=== PATIENT | female | born 1955 | race Caucasian/White ===

== ENCOUNTER 2024-10-31 07:51 | Emergency (ER) | payer OTHER, SELFPAY ==
[2024-10-31 07:52] VITALS: BP 146/73; PULSE 57; RESP 14; TEMP 36.1; O2SAT 98; BMI 28.9
--- NOTE | 2024-10-31 08:09 | ED.VIS.BACK ---
HPI History of Present Illness Chief Complaint: Back Informant: patient Onset/Context/Timing Onset: Days (3) Context: Gradual Onset Timing: Continuous Quality: - (Cramping) Location: Lumbar Worsened by: improves with Nothing Relieved by: Nothing Associated Symptoms Associated Symptoms: Fever and Abdominal Pain; Negative for Numbness, Tingling, Radiation to Right Leg, Radiation to Left Leg, Dysuria, Unable to Ambulate, Unable to Transfer, Urinary Retention, Urinary Incontinence or Fecal Incontinence Narrative Narrative: Patient presents with low back pain and left lower abdominal pain that has been getting worse over the past 3 days. Patient states it is constant. Patient describes it as cramping. Patient states it starts in her back and radiates around to her left lower abdomen. Patient states nothing makes it better and nothing makes it worse. Patient admits to a low-grade fever of 101 at home. Patient denies any dysuria, frequency, or hematuria. Patient denies any nausea or vomiting. [facility] Medical History (Updated 10/31/24 @ 10:[address] Bishnu Lopez, DO) HLD (hyperlipidemia) HTN (hypertension) CAD (coronary artery disease) Home Medications ?Medication ?Instructions ?Recorded ?Last Taken ?Type aspirin 81 mg chewable tablet 81 mg PO DAILY@0800 07/12/14 11/18/15 History atorvastatin 80 mg tablet 80 mg PO QHS 07/12/14 11/17/15 History clopidogrel 75 mg tablet 75 mg PO DAILY 07/12/14 11/18/15 History fenofibrate 160 mg tablet (Lofibra) 160 mg PO DAILY 09/08/15 11/18/15 History isosorbide mononitrate 120 mg 120 mg PO DAILY 09/08/15 11/18/15 History tablet,extended release 24 hr metoprolol succinate 25 mg 25 mg PO DAILY 09/08/15 11/18/15 History tablet,extended release 24 hr nitroglycerin 0.4 mg sublingual 0.4 mg sublingual Q5M PRN Chest 09/08/15 Unknown History tablet Pain omega-3 fatty acids-fish oil 300 1 ea PO DAILY 09/08/15 11/18/15 History mg-1,000 mg capsule ranolazine 1,000 mg 1,000 mg PO BID 09/08/15 11/18/15 History tablet,extended release,12 hr (Ranexa) ondansetron 4 mg disintegrating 4 mg PO Q6H PRN PRN Nausea #10 tabs 08/09/16 Unknown Rx tablet oxycodone-acetaminophen 5 mg-325 1 - 2 tab PO Q6H PRN PRN Pain #12 08/09/16 Unknown Rx mg tablet tabs amoxicillin 875 mg-potassium 875 mg PO Q12H #20 TABLETS 10/31/24 Unknown Rx clavulanate 125 mg tablet Allergy/AdvReac Type Severity Reaction Status Date / Time amlodipine besylate (From Allergy Unknown Verified 10/31/24 07:52 [facility]) Surgical History (Updated 10/31/24 @ 08:[address] Bishnu Lopez DO) Hx of heart artery stent S/P PTCA (percutaneous transluminal coronary angioplasty) Social History Smoking Status: Former smoker ROS ROS ED Constitutional Constitutional ED: Reports fever(s); Denies chills Eyes Eyes: Denies blurry vision or change in vision ENT ENT ED: Denies rhinorrhea or sore throat Cardiovascular Cardiovascular: Denies chest pain or palpitations Respiratory/Chest Respiratory/Chest: Denies cough or dyspnea Gastrointestinal Gastrointestinal: Reports abdominal pain; Denies nausea or vomiting Genitourinary Genitourinary ED: Denies dysuria or hematuria Musculoskeletal Musculoskeletal: Reports back pain; Denies neck pain Integumentary Denies abscess or rash Neurologic Neurologic: Denies headache(s) or weakness Allergic/Immunologic Allergic/Immunologic ED: Denies mouth swelling or urticaria EXAM Physical Exam Const Vital Signs: 10/31/24 07:52 Temperature 96.9 F L Temperature Source Temporal Pulse Rate 57 L Respiratory Rate 14 Blood Pressure 146/73 H Blood Pressure Mean 97 Pulse Ox 98 Oxygen Delivery Method Room Air Positive well nourished and well developed General Appearance ED: well developed and NAD HEENT Reports moist mucous membranes Neck supple and no JVD Resp normal respiratory effort and clear to auscultation bilaterally Cardio regular rate and regular rhythm GI soft to palpation and non-distended Palpation: tender LLQ Back/Spine Back/Spine Narrative: There is tenderness to palpation of the left lumbar paraspinal muscles. There is decreased range of motion. There is left CVA tenderness. Strength is 5/5 bilaterally in the lower extremities. There are no sensory deficits noted. Straight leg raises were negative bilaterally. General Back: CVA tenderness left Lumbar Spine / Lower Back: ROM limited and straight leg raise negative bilaterally Extremity normal to inspection Neuro oriented x3 and no sensory deficits noted Sensorium / Orientation: alert Motor Exam: strength 5/5 throughout Psych mental status grossly normal MDM MDM MDM Narrative Medical decision making narrative: Differential diagnosis includes lumbosacral strain, lumbar radiculopathy, ureteral calculus, diverticulitis, urinary tract infection, and pyelonephritis. CBC will be obtained to assess for leukocytosis and anemia. Basic metabolic profile will be obtained to assess for electrolyte abnormality and renal function. Urinalysis will be obtained to assess for urinary tract infection and hematuria. CT scan of the abdomen and pelvis will be obtained to assess for ureteral calculus, diverticulitis, and pyelonephritis. History & Record Review Additional record(s) reviewed:: Prior labs Lab Data Attestation: I reviewed the patient's lab results. Lab results narrative: CBC was reviewed and was essentially within normal limits. Basic metabolic profile was reviewed and was essentially within normal limits. Urinalysis was reviewed. There is no evidence of urinary tract infection or hematuria. Labs: Laboratory Results - last 24 hr 10/31/24 10/31/24 08:45 09:41 WBC 6.0 RBC 5.04 Hgb 15.3 H Hct 46.4 MCV 92.1 MCH 30.4 MCHC 33.0 RDW Std Deviation 46.9 H RDW Coeff of Vasu 13.9 Plt Count 248 MPV 10.1 Immature Gran % (Auto) 0.300 Neut % (Auto) 63.9 Lymph % (Auto) 21.4 [place] % (Auto) 12.9 H Eos % (Auto) 1.2 Baso % (Auto) 0.3 Absolute Neuts (auto) 3.8 Absolute Lymphs (auto) 1.28 Nucleated RBC % 0 Sodium 139 Potassium 4.2 Chloride 106 Carbon Dioxide 22.2 Anion Gap 11 BUN 16 Creatinine 0.89 Estim Creat Clear Calc 59.73 Est GFR (MDRD) Non-Af 70 BUN/Creatinine Ratio 18.0 Glucose 112 H Calcium 9.9 Urine Color Yellow Urine Clarity Clear Urine pH 5.0 Ur Specific [place] 1.015 Urine Protein 30 H Urine Glucose (UA) 250 H Urine Ketones Negative Urine Occult Blood 25 H Urine Nitrite Negative Urine Bilirubin Negative Urine Urobilinogen 1 H Ur Leukocyte Esterase 100 H Urine RBC 0-5 SEEN Urine WBC 0-5 SEEN Ur Squamous Epith Cells 0-5 SEEN Urine Bacteria 0 SEEN Hyaline Casts 0-5 SEEN Urine Mucus RARE Radiography Diagnostic Testing: Clinical Impression(s) from Imaging Studies Abdomen/Pelvis CT 10/31/24 08:23 IMPRESSION: Acute mid and distal sigmoid diverticulitis with extensive Vicki sigmoidal inflammatory stranding. No clearly demonstrated micro perforation. An underlying lesion can not be excluded and further evaluation with colonoscopy is recommended once acute inflammation has resolved Scattered colonic diverticulosis throughout the remainder of the colon particularly the distal sigmoid colon but no other evidence of diverticulitis Small-bowel ileus likely due to the acute diverticulitis mentioned above No suspicious solid organ abnormality, simple renal cysts, no specific follow-up needed Uterus is present, the endometrium can not be accurately evaluated with CT [place] Alert: Acute diverticulitis, possible microperforation. The critical information above was relayed directly by me by telephone to Bishnu Lopez on 10/31/2024 at 9:25 am with readback verification. Reading Location: [facility] CT scan of the abdomen and pelvis was obtained. There is mid and distal sigmoid diverticulitis with perisigmoidal inflammatory stranding. There is no evidence of any abscess or perforation. There is no free air or free fluid. There is a small bowel ileus that is likely due to the diverticulitis. There is no evidence of bowel obstruction. This was interpreted by the radiologist and was also independently reviewed by myself. Treatment and Re-Evaluation Narrative: Patient was given IV fluids, morphine, and Zofran. Patient was given a dose of Zosyn. Patient was advised of her findings. Clinically, patient feels well. Patient states she would prefer to go home. Patient was given a prescription for Augmentin (there is an interaction between atorvastatin and Cipro). Patient was instructed to follow-up with her primary care physician in 3 to 5 days. Patient was also given referral for general surgery follow-up. Patient understood and was agreeable with the plan. All questions were answered Discharge Plan Triage Chief Complaint: Back ED Provider: Bishnu Lopez Dx/Rx/DC Orders Clinical Impression: Diverticulitis of sigmoid colon, HTN (hypertension) Instructions: ED Diverticulitis Prescriptions: New amoxicillin-pot clavulanate 875-125 mg tablet 875 mg PO Q12H Qty: 20 0RF No Action atorvastatin 80 MG tablet 80 mg PO QHS Patient Comments: cholesterol lowering clopidogrel 75 MG tablet 75 mg PO DAILY Patient Comments: blood thinner aspirin 81 MG tablet,chewable 81 mg PO DAILY@0800 Patient Comments: heart health isosorbide mononitrate 120 MG tablet 120 mg PO DAILY Patient Comments: heart, blood pressure nitroglycerin 0.4 MG tablet 0.4 mg sublingual Q5M PRN (Reason: Chest Pain) Patient Comments: chest pain metoprolol succinate 25 MG tablet 25 mg PO DAILY Patient Comments: blood pressure fenofibrate [Lofibra] 160 MG tablet 160 mg PO DAILY Patient Comments: CHOLESTEROL omega-3 fatty acids-fish oil 1 EACH capsule 1 ea PO DAILY Patient Comments: supplement ranolazine [Ranexa] 1,000 MG tablet extended release 12 hr 1,000 mg PO BID Patient Comments: HEART ondansetron 4 MG tablet 4 mg PO Q6H PRN PRN (Reason: Nausea) Qty: 10 0RF oxycodone-acetaminophen 1 TABLET tablet 1 - 2 tab PO Q6H PRN PRN (Reason: Pain) Qty: 12 0RF Primary Care Provider: Chance Marin Referrals: Wisam De Leon MD [Med Staff - Active Staff] - 1 Week if not improving Chance Marin MD [Primary Care Provider] - 3-5 Days Print Language: Mongolian Disposition Disposition: Home, Self Care
--- NOTE | 2024-10-31 08:23 | CT_ITS ---
PROCEDURE: ABDOMEN/PELVIS W IV CONT ONLY 10/31/2024 REASON FOR EXAM: ABDOMINAL PAIN TECHNIQUE: ABDOMEN/PELVIS W IV CONT ONLY Coronal and Sagittal reconstruction series were provided. CONTRAST: Isovue 370 VOLUME: 100 mL One or more dose reduction techniques were used (e.g., Automated exposure control, adjustment of the mA and/or kV according to patient size, use of iterative reconstruction technique. RADIATION DOSE SUMMARY: CTDlvol: 36.93 mGy DLP: 879.67 mGycm COMPARISON: None FINDINGS: Lung bases: Mild dependent atelectasis Liver: Normal size. No mass. Gallbladder: Unremarkable Spleen: Normal size. Pancreas: Normal size without evidence of mass surrounding inflammation or ductal dilation. Adrenals: Unremarkable Kidneys: Normal renal sizes. No hydronephrosis. Simple cortical cysts, no specific follow-up needed. Bladder: Unremarkable but incompletely distended Reproductive Organs: Uterus is present, the endometrium can not be accurately evaluated with CT. No suspicious adnexal mass or free fluid Bowel: There is abnormal submucosal thickening and edema in the mid and distal sigmoid colon with Vicki sigmoidal inflammatory stranding consistent with acute diverticulitis. No demonstrated abscess or perforation. An underlying lesion however can not be excluded and further evaluation with colonoscopy is recommended once the acute inflammation has resolved. Scattered colonic diverticula noted elsewhere without other evidence of acute diverticulitis. Nondistended fluid-filled small bowel loops are noted consistent with ileus which is likely due to the aforementioned acute diverticulitis. Appendix: Not visualized No free intraperitoneal fluid, air, or suspicious adenopathy. Peripheral calcifications in the abdominal aorta without aneurysm. Bones: Age consistent degenerative bony changes CT/Abdomen/Pelvis W IV Cont ONLY IMPRESSION: Acute mid and distal sigmoid diverticulitis with extensive Vicki sigmoidal infla mmatory stranding. No clearly demonstrated micro perforation. An underlying lesion can not be excluded and further evaluation w ith colonoscopy is recommended once acute inflammation has resolved Scattered colonic diverticulosis throughout the remainder of the colon particul kami the distal sigmoid colon but no other evidence of diverticulitis Small-bowel ileus likely due to the acute diverticulitis mentioned above No suspicious solid organ abnormality, simple renal cysts, no specific follow-u p needed Uterus is present, the endometrium can not be accurately evaluated with CT [place] Alert: Acute diverticulitis, possible microperforation. The critical information above was relayed directly by me by telephone to Bishnu Smith on 10/31/2024 at 9:25 am with readback verification. Reading Location: [id number]
[2024-10-31] MEDS: 0.9% Normal Saline (1000mL) 1,000 ML 1000 ML IV (08:51)
[2024-10-31 09:00] LABS: Hematocrit 46.4 % (37-47); Hemoglobin 15.3 g/dL (12.0-15.0); Immature Granulocytes Count 0.020 X10^3/uL (0.0-0.0); Mean Corp Hgb Conc 33.0 g/dL (32-36); Mean Corpuscular Volume 92.1 fL (81-99); Mean Platelet Vol. 10.1 fl (6.2-12.0); NRBC Flagged by Analyzer 0 % (0-5); Platelet Count 248 K/mm3 (150-450); RBC Distribution Width CV 13.9 % (11.6-14.6); RBC Distribution Width SD 46.9 fl (35.1-43.9); Red Blood Count 5.04 M/mm3 (4.2-5.4); White Blood Count 6.0 K/mm3 (4.4-11.0)
[2024-10-31 09:24] LABS: Anion Gap 11 (5-15); BUN 16 mg/dL (4-19); BUN/Creat Ratio 18.0 RATIO (10-20); Calcium,Total 9.9 mg/dL (7.6-11.0); Carbon Dioxide 22.2 mmol/L (21.0-32.0); Chloride 106 mmol/L (98-108); Estimated Creatinine Clearance 59.73 ml/min (50-250); Glucose 112 mg/dL (70-99); Potassium 4.2 mmol/L (3.3-5.1)
[2024-10-31 09:55] LABS: Color, Urine Yellow (Yellow); Glucose, Dipstick 250 mg/dl (Normal); Ketone-Dipstick Negative (Negative); Leukocyte Esterase-Dipstick 100 /ul (Negative); Nitrite-Dipstick Negative (Negative); Occult Blood-Urine 25 /ul (Negative); Protein-Dipstick 30 mg/dl (Negative); Specific Gravity, Urine 1.015 (1.002-1.030); Urine Bilirubin Dipstick Negative (Negative)
[2024-10-31] MEDS: Piperacil/Tazobactam 4.5 GM in 0.9% Normal Saline (100mL MB+) 100 ML IV (10:15)
[2024-10-31 10:25] LABS: Mucous, Urine RARE /hpf (<or=2+); Red Blood Cells-Urine 0-5 SEEN /hpf (0-5); Squamous Epithelial Cells - UA 0-5 SEEN /hpf (5-10)
[2024-10-31 10:53] VITALS: BP 114/61; PULSE 54; RESP 16; TEMP 37.1; O2SAT 97
== END 2024-10-31 11:00 | disposition home or self-care (01) ==
PROVIDERS: Emergency Provider Emergency Medicine; PCP Family Medicine; Visit Provider Emergency Medicine
DX: K57.32 Diverticulitis of large intestine without perforation or abscess without bleeding (principal); K56.7 Ileus, unspecified; I25.10 Atherosclerotic heart disease of native coronary artery without angina pectoris; I10 Essential (primary) hypertension; E78.5 Hyperlipidemia, unspecified; M54.50 Low back pain, unspecified; Z79.82 Long term (current) use of aspirin; Z79.02 Long term (current) use of antithrombotics/antiplatelets; Z79.899 Other long term (current) drug therapy; Z87.891 Personal history of nicotine dependence
CPT/HCPCS: 74177; 80048; 81001; 85025; 96361; 96365; 96375; 99284; Q9967; A4216; J2405